=== PATIENT | male | born 1985 | race Caucasian/White ===

== ENCOUNTER 2019-07-29 23:00 | Emergency (ER) | payer MEDICAID ==
[~2019-07-29] VITALS: Ht 180.3 cm; Wt 81.8 kg
[2019-07-29 23:02] VITALS: BP 114/81
[2019-07-29] MEDS ORDERED: azithromycin 250mg tablet PO ONE (23:20)
[2019-07-29] MEDS ORDERED: penicillin G benzathine 1.2 million unit/2ml syringe IM ONE (23:20)
[2019-07-29] MEDS ORDERED: CefTRIAXone 250MG IM Kit w/LIDOcaine IM ONE (23:20)
--- NOTE | 2019-08-02 09:29 | NUR ---
PT CALLED ON 07/31 AND TODAY, VOICE MAILBOX NOT SET UP FOR MESSAGES, NO MESSAGE LEFT. LETTER SENT TO PT.
--- NOTE | 2019-08-04 08:39 | NUR ---
Per Dr. Sanchez patient is to follow up with PCP in 2 weeks for a recheck. Letter has already been sent to call ED to inform regarding this.
== END 2019-07-29 23:48 | disposition home or self-care (01) ==
LOC: ER 23:02
DX: Z11.3 Encounter for screening for infections with a predominantly sexual mode of transmission (principal); Z86.19 Personal history of other infectious and parasitic diseases
CPT/HCPCS: 36415; 86592; 87491; 87591; 96372; 99284; J0561; J0696